=== PATIENT | female | born 1990 | race African-American/Black ===

== ENCOUNTER 2022-04-20 10:40 | Emergency (ER) | payer MEDICAID, OTHER ==
[~2022-04-20] VITALS: Ht 172.7 cm; Wt 108.9 kg
[2022-04-20 10:47] VITALS: BP 158/100
[2022-04-20] MEDS ORDERED: KETOROLAC TROMETH 60MG/2ML VIAL IM ONE (11:45)
[2022-04-20] MEDS ORDERED: IBUP800T27 PO (11:51)
[2022-04-20] MEDS ORDERED: METH750T22 PO (11:51)
== END 2022-04-20 12:06 | disposition home or self-care (01) ==
LOC: ER 10:40
DX: S46.911A Strain of unspecified muscle, fascia and tendon at shoulder and upper arm level, right arm, initial encounter (principal); S16.1XXA Strain of muscle, fascia and tendon at neck level, initial encounter; Z79.1 Long term (current) use of non-steroidal anti-inflammatories (NSAID); Z79.899 Other long term (current) drug therapy; V43.52XA Car driver injured in collision with other type car in traffic accident, initial encounter; Y93.89 Activity, other specified; Y92.410 Unspecified street and highway as the place of occurrence of the external cause; Y99.8 Other external cause status
CPT/HCPCS: J1885